=== PATIENT | male | born 1960 | race Two or more races ===

== ENCOUNTER 2024-08-29 22:02 | Inpatient (IN) | payer MEDICARE, OTHER ==
[~2024-08-29] VITALS: Ht 170.2 cm; Wt 54.5 kg
[2024-08-29 22:41] LABS: Basophils # (auto) 0 10 ^3/uL (0-0.2); Basophils % (auto) 0.3 % (0.0-2.0); Eosinophils # (auto) 0 10 ^3/uL (0-0.8); Eosinophils % (auto) 0.6 % (0.0-7.0); Hematocrit 46.7 % (41.0-53.0); Hemoglobin 15.7 g/dL (13.5-17.5); Lymphocytes # (auto) 1.2 10 ^3/uL (0.4-5.4); Mean Corpuscular Hemoglobin 30.4 pg (28.0-32.0); Mean Corpuscular Hgb Conc. 33.7 g/dL (32.0-36.0); Mean Corpuscular Volume 90.4 fL (80.0-100.0); Monocytes # (auto) 0.3 10 ^3/uL (0-1.3); Monocytes % (auto) 4.6 % (0.0-12.0); Neutrophils # (auto) 5.4 10 ^3/uL (1.6-8.6); Neutrophils % (auto) 77.5 % (37.0-80.0); Platelet Count (auto) 192 10^3/uL (140-450); Red Blood Cells 5.17 10^6/uL (4.5-5.90); Red Cell Distribution Width 13.6 % (11.8-14.3)
[2024-08-29 22:51] LABS: Chloride 106 mmol/L (98-107); Potassium 4.2 mmol/L (3.5-5.1); Sodium 141 mmol/L (136-145)
[2024-08-29 22:52] LABS: Anion Gap 6 (5-15); Calcium 10.2 mg/dL (8.7-10.4); Carbon Dioxide 29 mmol/L (20-31)
[2024-08-29 22:57] LABS: BUN/Creatinine Ratio 14.6 (10.0-20.0); Blood Urea Nitrogen 22 mg/dL (9-23)
[2024-08-29 23:11] LABS: Glucose 113 mg/dL (74-106)
--- NOTE | 2024-08-30 01:42 | ED.PDOC ---
HPI Comments This patient is a pleasant but lean 64-year-old male who arrives to the ED today via EMS for complaints of chest pain that began this morning has continued throughout the day. Patient does have a history of two prior MIs. Patient describes the pain in his Melissa, almost like an acid reflux type pain. Patient states he has had similar pain events prior to his MIs. Patient denies any fever nausea or vomiting. Patient was bradycardic at arrival. Patient declined the need for any medication while at the facility. Chief Complaint: Chest Pain Time Seen by MD: 22:07 Reviewed Notes: Nurses Notes Information Source: Patient, Friend Mode of Arrival: EMS Severity: Moderate Timing: Hours Duration: Since onset Prehospital treatment: 12 Lead EKG Location: Substernal Radiation: No Radiation Quality: Burning Onset: At Rest PE Risk Factors: None History of: [place] Associated Signs and Symptoms: Heartburn Past Medical History PAST MEDICAL HISTORY: [place] Surgical History: Denies all surgeries Family History Family History: Reviewed,noncontributory to illness, No family hx of Cancer, No family hx of DM, No family hx of Heart gita, No family hx of HTN, No family hx ofKidney gita, No family hx of Liver gita, No family hx of Lung gita, No family hx of Stroke Social History Smoker: Non-Smoker Alcohol: Denies ETOH Use Drugs: Denies Drug Use Lives In: Home Constitutional: denies: chills, diaphoresis, fatigue, fever, malaise, sweats, weakness, others EENTM: denies: blurred vision, double vision, ear bleeding, ear discharge, ear drainage, ear pain, ear ringing, eye pain, eye redness, hearing loss, mouth pain, mouth swelling, nasal discharge, nose bleeding, nose congestion, nose pain, photophobia, tearing, throat pain, throat swelling, voice changes, others Respiratory: denies: cough, hemoptysis, orthopnea, SOB at rest, shortness of breath, SOB with excertion, stridor, wheezing, others Cardiovascular: reports: chest pain; denies: dizzy spells, diaphoresis, Dyspnea on exertion, edema, irregular heart beat, left arm pain, lightheadedness, palpitations, PND, syncope, others Gastrointestinal: denies: abdomen distended, abdominal pain, blood streaked bowels, constipated, diarrhea, dysphagia, difficulty swallowing, hematemesis, melena, nausea, poor appetite, poor fluid intake, rectal bleeding, rectal pain, vomiting, others Genitourinary: denies: burning, dysuria, flank pain, frequency, hematuria, incontinence, penile discharge, penile sore, pain, testicle pain, testicle swelling, urgency, others Neurological: denies: dizziness, fainting, headache, left sided numbness, left sided weakness, numbness, paresthesia, pre-existing deficit, right sided numbness, right sided weakness, seizure, speech problems, tingling, tremors, weakness, others Musculoskeletal: denies: back pain, gout, joint pain, joint swelling, muscle pain, muscle stiffness, neck pain, others Integumetry: denies: bruises, change in color, change in hair/nails, dryness, laceration, lesions, lumps, rash, wounds, others Allergic/Immunocompromised: denies: Difficulty Healing, Frequent Infections, Hives, Itching, others Hematologic/Lymphatic: denies: anemia, blood clots, easy bleeding, easy bruising, swollen glands, others Endocrine: denies: excessive hunger, excessive sweating, excessive thirst, excessive urination, flushing, intolerance to cold, intolerance to heat, unexplained weight gain, unexplained weight loss, others Psychiatric: denies: anxiety, bipolar disorder, depression, hopeless, panic disorder, schizophrenia, sleepless, suicidal, others Physical Exam General Appearance: Moderate Distress (Moderate distress due to anxiety and burning chest pain.), Normal HEENT: Normal ENT Inspection, Pharynx Normal, TMs Normal Neck: Full Range of Motion, Non-Tender, Normal, Normal Inspection Respiratory: Chest Non-Tender, Lungs Clear, No Accessory Muscle Use, No Respiratory Distress, Normal Breath Sounds Cardiovascular: Bradycardia, No Edema, No JVD, No Murmur, No Gallop, Normal Peripheral Pulses Breast Exam: Deferred Gastrointestinal: No Organomegaly, Non Tender, No Pulsatile Mass, Normal Bowel Sounds, Soft Genitalia: Deferred Pelvic: Deferred Rectal: Deferred Extremities: No calf tenderness, Normal capillary refill, Normal inspection, Normal range of motion, Non-tender, No pedal edema Neurologic: Alert, civil service clerk II-XII nml as Tested, No Motor Deficits, Normal Affect, Normal Mood, No Sensory Deficits Cerebellar Function: Normal Reflexes: Normal Skin: Dry, Normal Color, Warm Lymphatic: No Adenopathy Was a procedure done? Was a procedure done?: No CP Differential Dx Differential Diagnosis: A-fib, Angina, Anxiety / Panic Attack, Atrial Dysrhythmia, AV Block 1st Degree, [place], Other (Acute coronary syndrome) X-Ray, Labs, Meds, VS Vital Signs Date Time Temp Pulse Resp B/P (MAP) Pulse Ox O2 Delivery O2 Flow Rate FiO2 08/29/24 23:12 47 08/29/24 22:28 98.8 65 15 127/59 (81) 99 08/29/24 22:16 55 Lab Test 08/29/24 23:20 08/29/24 22:28 Range/Units Troponin I High Sensitivity 4 4 </=54 ng/L White Blood Count 7.0 4.4-10.8 10^3/uL Red Blood Count 5.17 4.5-5.90 10^6/uL Hemoglobin 15.7 13.5-17.5 g/dL Hematocrit 46.7 41.0-53.0 % Mean Corpuscular Volume 90.4 80.0-100.0 fL Mean Corpuscular Hemoglobin 30.4 28.0-32.0 pg Mean Corpuscular Hemoglobin Concent 33.7 32.0-36.0 g/dL Red Cell Distribution Width 13.6 11.8-14.3 % Platelet Count 192 140-450 10^3/uL Mean Platelet Volume 9.0 6.9-10.8 fL Neutrophils (%) (Auto) 77.5 37.0-80.0 % Lymphocytes (%) (Auto) 17.0 10.0-50.0 % Monocytes (%) (Auto) 4.6 0.0-12.0 % Eosinophils (%) (Auto) 0.6 0.0-7.0 % Basophils (%) (Auto) 0.3 0.0-2.0 % Neutrophils # (Auto) 5.4 1.6-8.6 10 ^3/uL Lymphocytes # (Auto) 1.2 0.4-5.4 10 ^3/uL Monocytes # (Auto) 0.3 0-1.3 10 ^3/uL Eosinophils # (Auto) 0 0-0.8 10 ^3/uL Basophils # (Auto) 0 0-0.2 10 ^3/uL Nucleated Red Blood Cells 0.0 % Sodium Level 141 136-145 mmol/L Potassium Level 4.2 3.5-5.1 mmol/L Chloride Level 106 98-107 mmol/L Carbon Dioxide Level 29 20-31 mmol/L Anion Gap 6 5-15 Blood Urea Nitrogen 22 9-23 mg/dL Creatinine 1.51 H 0.700-1.30 mg/dL Glomerular Filtration Rate Calc 51 >90 mL/min BUN/Creatinine Ratio 14.6 10.0-20.0 Serum Glucose 113 H 74-106 mg/dL Lactic Acid Level 1.0 0.4-2.0 mmol/L Calcium Level 10.2 8.7-10.4 mg/dL B-Type Natriuretic Peptide 10.23 0-100 pg/mL X-Ray, Labs, Meds, VS Comment All studies performed the ED were reviewed by me personally. Laboratories were unremarkable for any acute systemic process and troponins were unremarkable. Chest x-ray was unremarkable for any consolidation or intrapulmonary concerns. EKG revealed a sinus rhythm with a borderline short CT interval and a history of anteroseptal infarct. Rate was 53 CT interval was 118 and QT interval was 460. Patient tended to trend in bradycardic range throughout his stay. Patient will be admitted for an acute coronary syndrome and rule out of sick sinus syndrome. Time of 1ST Reevaluation: 01:40 Reevaluation 1ST: Unchanged Consultation: PCP, Cardiology Patient Education/Counseling: Diagnosis, Treatment Family Education/Counseling: Diagnosis, Treatment Departure 1 Departure Time of Disposition: 01:41 Impression: Primary Impression: Acute coronary syndrome Additional Impression: Sick sinus syndrome Disposition: ADMITTED INPATIENT Condition: Stable Discharged With: Self Critical Care Note Critical Care Time?: No Stability Stability form required: No Heart Score Heart Score: Heart Score Response (Comments) Value History Slightly Suspicious 0 EKG Repolarization Disturb 1 Age >65 2 Risk Factors 1 or 2 risk factors 1 Troponin Normal limit 0 Total 4 KEVIN LONGO PAC Aug 30, 2024 01:42
--- NOTE | 2024-08-30 02:09 | DVH ---
EXAM: XY CHEST PORTABLE CLINICAL HISTORY: Chest pain TECHNIQUE: Single view of the chest WID: COMPARISON: None FINDINGS: Lines and tubes: None Chest: The heart size and pulmonary vasculature is within normal limits. Calcified plaque projects over the aortic arch. No pleural effusion, pneumothorax, or consolidation. Hyperexpansion of the lungs. The osseous structures are grossly intact. IMPRESSION: 1. No acute cardiopulmonary abnormality. 2. Hyperexpansion of the lungs which can be seen in the setting of COPD/ emphysema.
[2024-08-30] MEDS ORDERED: HYDROcodone-ACET 5/325MG TAB PO PRN (03:15)
[2024-08-30] MEDS ORDERED: DOCUSATE SOD 100 MG CAP PO PRN (03:15)
[2024-08-30] MEDS ORDERED: MORPHINE SULFATE INJ 2 MG/ml SYRG IV PRN ×2 (03:15→03:45)
[2024-08-30] MEDS ORDERED: ACETAMINOPHEN 325 MG TAB PO PRN (03:15)
[2024-08-30] MEDS ORDERED: NITROGLYCERIN 0.4 MG SL TAB SL PRN (03:45)
--- NOTE | 2024-08-30 03:46 | DVHHP2 ---
History of Present Illness Reason for Visit: Chest pain History of Present Illness Patient is a 64-year-old male with past medical history of myocardial infarction who presented to [facility] ED with complaint of chest pain. Patient reports pain as constant, rating 5/10 numeric scale, acid reflux type pain, getting worse that prompted this visit. Patient was seen and evaluated in the ED, laboratory data shows WBC 7.0, platelets 192, sodium 141, potassium 4.2, BUN 22, creatinine 1.51, glucose 113, BNP 10.23, troponin 4, blood pressure 127/59, heart rate 53, temperature 98.8 F, O2 saturation 99% on room air. Chest x-ray revealing hyperexpansion of the lungs which can be seen in the setting of COPD/emphysema, no acute cardiopulmonary abnormality. Please see medication orders section in the computer. On my assessment, patient denied chest pain at this moment, no headache, no dizziness, no diaphoresis, no shortness of breath, no nausea, no vomiting, no fever, no chills. Patient was admitted for further evaluation and medical management. Past Medical History PA Past Surgical History Denies all surgeries Family History Reviewed, noncontributory to the management of this case. Past Social History The patient lives at home, denies smoking, alcohol or illicit drugs abuse. Review of Systems Constitutional: Yes: Weakness; No: Fever, Chills, Sweats, Malaise, Other Eyes: No: Pain, Vision change, Conjunctivae inflammation, Eyelid inflammation, Other, Redness ENT: No: Ear pain, Ear discharge, Nose pain, Nose discharge, Nose congestion, Mouth pain, Mouth swelling, Throat pain, Throat swelling, Other Respiratory: No: Cough, Dry, Shortness of breath, SOB with excertion, Wheezing, Hemoptysis, Pleuritic Pain, Sputum, Wheezing, Other Cardiovascular: Chest Pain; No: Palpitations, Orthopnea, Paroxysmal Noc. Dyspnea, Edema, Lt Headedness, Other Gastrointestinal: No: Nausea, Vomiting, Abdominal Pain, Diarrhea, Constipation, Melena, Hematochezia, Other Genitourinary: No Dysuria, No Frequency, No Incontinence, No Hematuria, No Retention, No Other Musculoskeletal: No: other, neck pain, shoulder pain, arm pain, back pain, hand pain, leg pain, foot pain Skin: No: Rash, Lesions, Jaundice, Bruising, Other Neurological: No: Weakness, Numbness, Incoordination, Change in speech, Confusion, Seizures, Other Allergies: Coded Allergies: NO KNOWN ALLERGIES (Unverified , 08/30/24) Medications Current Medications Medications Dose Ordered Sig/Rose [place] Route Start Time Stop Time Status Last Admin Dose Admin Sodium Chloride 10 ml Q8HR IV 08/30/24 06:00 UNV Acetaminophen/ Hydrocodone Bitart 1 tab Q4HP PRN PO 08/30/24 03:15 UNV Ondansetron HCl 4 mg Q4HP PRN IV 08/30/24 03:15 UNV Docusate Sodium 100 mg BIDPRN PRN PO 08/30/24 03:15 UNV Acetaminophen 650 mg Q6HP PRN PO 08/30/24 03:15 UNV Morphine Sulfate 2 mg Q4HPRN PRN IV 08/30/24 03:15 UNV Exam Vital Signs Vital Signs Date Time Temp Pulse Resp B/P (MAP) Pulse Ox O2 Delivery O2 Flow Rate FiO2 08/30/24 01:24 53 08/29/24 22:28 98.8 15 127/59 (81) 99 General Appearance: Alert, Oriented X3, Cooperative, No acute distress HEENT: Atraumatic, PERRLA, EOMI, Mucous membr. moist/pink Respiratory: Clear to auscultation, Normal air movement Cardiovascular: Regular rate, Normal S1, Normal S2, No murmurs Abdominal: Normal bowel sounds, Soft, No tenderness, No hepatospenomegaly, No masses Extremities: No clubbing, No cyanosis, No edema, Normal pulses, No tenderness/swelling Skin: No rashes, No breakdown, No significant lesion Neuro: Normal speech, Normal tone, Sensation intact, Cranial nerves 3-12 NL, Reflexes 2+, Other (Generalized weakness) Psych/Mental Status: Mental status NL, Mood NL Labs/Xrays Labs Test 08/29/24 23:20 08/29/24 22:28 Range/Units Troponin I High Sensitivity 4 </=54 ng/L White Blood Count 7.0 4.4-10.8 10^3/uL Red Blood Count 5.17 4.5-5.90 10^6/uL Hemoglobin 15.7 13.5-17.5 g/dL Hematocrit 46.7 41.0-53.0 % Mean Corpuscular Volume 90.4 80.0-100.0 fL Mean Corpuscular Hemoglobin 30.4 28.0-32.0 pg Mean Corpuscular Hemoglobin Concent 33.7 32.0-36.0 g/dL Red Cell Distribution Width 13.6 11.8-14.3 % Platelet Count 192 140-450 10^3/uL Mean Platelet Volume 9.0 6.9-10.8 fL Neutrophils (%) (Auto) 77.5 37.0-80.0 % Lymphocytes (%) (Auto) 17.0 10.0-50.0 % Monocytes (%) (Auto) 4.6 0.0-12.0 % Eosinophils (%) (Auto) 0.6 0.0-7.0 % Basophils (%) (Auto) 0.3 0.0-2.0 % Neutrophils # (Auto) 5.4 1.6-8.6 10 ^3/uL Lymphocytes # (Auto) 1.2 0.4-5.4 10 ^3/uL Monocytes # (Auto) 0.3 0-1.3 10 ^3/uL Eosinophils # (Auto) 0 0-0.8 10 ^3/uL Basophils # (Auto) 0 0-0.2 10 ^3/uL Nucleated Red Blood Cells 0.0 % Sodium Level 141 136-145 mmol/L Potassium Level 4.2 3.5-5.1 mmol/L Chloride Level 106 98-107 mmol/L Carbon Dioxide Level 29 20-31 mmol/L Anion Gap 6 5-15 Blood Urea Nitrogen 22 9-23 mg/dL Creatinine 1.51 H 0.700-1.30 mg/dL Glomerular Filtration Rate Calc 51 >90 mL/min BUN/Creatinine Ratio 14.6 10.0-20.0 Serum Glucose 113 H 74-106 mg/dL Lactic Acid Level 1.0 0.4-2.0 mmol/L Calcium Level 10.2 8.7-10.4 mg/dL B-Type Natriuretic Peptide 10.23 0-100 pg/mL PATIENT: JOSE QUIÑONEZ ACCT: [id number] UNIT: [id number] : 1960 LOC: ER ROOM / BED: / AGE / SEX: 64 / M ADM STATUS: REG ER SERVICE 10 ORDERING PHYSICIAN: KEVIN LONGO PAC PROCEDURE(s): CXRP - CHEST PORTABLE REASON: Chest pain ORDER NUMBER(s): [id number], ACCESSION NUMBER(s): [id number] EXAM: XY CHEST PORTABLE CLINICAL HISTORY: Chest pain TECHNIQUE: Single view of the chest WID: COMPARISON: None FINDINGS: Lines and tubes: None Chest: The heart size and pulmonary vasculature is within normal limits. Calcified dee que projects over the aortic arch. No pleural effusion, pneumothorax, or consolidation. Hyperexpansion of the lungs. The osseous structures are grossly intact. IMPRESSION: 1. No acute cardiopulmonary abnormality. 2. Hyperexpansion of the lungs which can be seen in the setting of COPD/emphysema. Assessment/Plan Assessment/Plan Acute coronary syndrome Sick sinus syndrome Generalized weakness Plan 1. Admit to telemetry unit 2. Breathing treatment 3. Pain control management 4. Management of fluids and electrolytes 5. Consultation for hospitalist 6. Diagnostic tests chest x-ray 7. DVT prophylaxis-on SCDs 8. Repeat labs CBC, CMP in a.m. 9. Continue with current medical management 10. Treatment plan discussed with patient and RN. Patient verbalized understanding. Plan discussed with: Patient, Other (RN) My Orders Orders - REID SMITH DNP Procedure Category Date Status Time Complete Blood Count LAB 08/30/24 Logged 04:00 Comprehensive LAB 08/30/24 Logged Metabolic Panel 04:00 Allergies STACY 08/30/24 In Process 03:07 Code Status CODE 08/30/24 Transmitted 03:07 Sodium Chloride Lock PHA 08/30/24 Logged (Saline Lock Ns) 06:00 Oxygen Per Hour RT 08/30/24 Transmitted 03:07 Hydrocodone-Acet PHA 08/30/24 Logged 5/325mg Tab ([place] 03:15 Ondansetron Hcl PHA 08/30/24 Logged (Zofran) 03:15 Docusate Sodium PHA 08/30/24 Logged Capsule ([place] 03:15 Complete Blood Count LAB 08/31/24 Verified 04:00 Comprehensive LAB 08/31/24 Verified Metabolic Panel 04:00 Cardiac DIET 08/30/24 Transmitted Diet-2gna,Lofat,Lochol Breakfast Condition: Serious STACY 08/30/24 In Process 03:07 Acetaminophen Tablet PHA 08/30/24 Logged (Tylenol Tablet) 03:15 Bedrest With Bathroom STACY 08/30/24 In Process Privileg 03:07 Morphine Sulfate [facility] 08/30/24 Logged Injection 03:15 Sequential [facility] 08/30/24 In Process Compression Device Admit ADMIT 08/30/24 Transmitted 03:45 Nitroglycerin [facility] 08/30/24 Transmitted Sublingual ([place]stat 03:45 Morphine Sulfate [facility] 08/30/24 Transmitted Injection 03:45 Notify Md Of Changes [facility] 08/30/24 Transmitted From Base 03:45 Certified Respiratory Therapist For [facility] 08/30/24 Transmitted 24 Hours 03:45 Emergency Dysrhythmia [facility] 08/30/24 Transmitted Protocol 03:45 Rhythm Strips Once [facility] 08/30/24 Transmitted Every Shift 03:45 Oxygen By Nasal 08/30/24 Transmitted Cannula 03:45 Problem List: (1) Acute coronary syndrome (2) Sick sinus syndrome (3) Generalized weakness Date of Service: Aug 30, 2024 Billing Provider: REID SMITH DNP Common Visit Codes: [id number] INP/OBS CARE (HIGH) REID SMITH DNP Aug 30, 2024 03:46
[2024-08-30 04:30] VITALS: PULSE 59; RESP 18; O2SAT 98
[2024-08-30] MEDS: SOD CHL 0.45% 1,000 ML IV SCH (06:15)
[2024-08-30] MEDS: SODIUM CHLOR 0.9% PF (SALINE LOCK) 10ML VIAL/SYR IV SCH (06:30)
[2024-08-30 07:20] VITALS: PULSE 65; RESP 14; O2SAT 100
[2024-08-30 08:43] LABS: Basophils # (auto) 0 10 ^3/uL (0-0.2); Basophils % (auto) 0.3 % (0.0-2.0); Eosinophils # (auto) 0.1 10 ^3/uL (0-0.8); Eosinophils % (auto) 1.5 % (0.0-7.0); Hematocrit 47.8 % (41.0-53.0); Hemoglobin 16.1 g/dL (13.5-17.5); Lymphocytes # (auto) 1.8 10 ^3/uL (0.4-5.4); Lymphocytes % (auto) 23.2 % (10.0-50.0); Mean Corpuscular Hemoglobin 30.5 pg (28.0-32.0); Mean Corpuscular Hgb Conc. 33.7 g/dL (32.0-36.0); Mean Corpuscular Volume 90.6 fL (80.0-100.0); Monocytes # (auto) 0.5 10 ^3/uL (0-1.3); Monocytes % (auto) 6.6 % (0.0-12.0); Neutrophils # (auto) 5.2 10 ^3/uL (1.6-8.6); Neutrophils % (auto) 68.4 % (37.0-80.0); Nucleated Red Blood Cells % 0.2 %; Platelet Count (auto) 210 10^3/uL (140-450); Red Blood Cells 5.27 10^6/uL (4.5-5.90); Red Cell Distribution Width 13.6 % (11.8-14.3); White Blood Cell 7.5 10^3/uL (4.4-10.8)
[2024-08-30 11:02] LABS: Alkaline Phosphatase 47 U/L (46-116); Anion Gap 5 (5-15); BUN/Creatinine Ratio 13.8 (10.0-20.0); Blood Urea Nitrogen 18 mg/dL (9-23); Calcium 10.2 mg/dL (8.7-10.4); Carbon Dioxide 30 mmol/L (20-31); Chloride 104 mmol/L (98-107); Potassium 4.4 mmol/L (3.5-5.1); Sodium 139 mmol/L (136-145)
[2024-08-30 11:03] LABS: Albumin 4.1 g/dL (3.2-4.8); Bilirubin, Total 0.7 mg/dL (0.2-1.0); Total Protein 6.7 g/dL (5.7-8.2)
[2024-08-30 11:10] LABS: Alanine Aminotransferase < 9 U/L (7-40); Aspartate Aminotransferase < 8 U/L (13-40); Glucose 108 mg/dL (74-106)
--- NOTE | 2024-08-30 13:01 | DVHPN2 ---
Reviewed: Care Plan, H&P, Labs, Medications, Previous Orders, Radiology Changes from previous H/P or p: No Changes Eyes: No Pain, No Vision change, No Conjunctivae inflammation, No Eyelid inflammation, No Other, No Redness ENT: No Ear pain, No Ear discharge, No Nose pain, No Nose discharge, No Nose congestion, No Mouth pain, No Mouth swelling, No Throat pain, No Throat swelling, No Other Cardiovascular: Chest Pain; No Palpitations, No Orthopnea, No Paroxysmal Noc. Dyspnea, No Edema, No Lt Headedness, No Other Respiratory: No Cough, No Dry, No Shortness of breath, No SOB with excertion, No Wheezing, No Hemoptysis, No Pleuritic Pain, No Sputum, No Other Gastrointestinal: No Nausea, No Vomiting, No Abdominal Pain, No Diarrhea, No Constipation, No Melena, No Hematochezia, No Other Genitourinary: No Dysuria, No Frequency, No Incontinence, No Hematuria, No Retention, No Other Musculoskeletal: No other, No neck pain, No shoulder pain, No arm pain, No back pain, No hand pain, No leg pain, No foot pain Skin: No Rash, No Lesions, No Jaundice, No Bruising, No Other Objective Vitals Vital Signs Date Time Temp Pulse Resp B/P (MAP) Pulse Ox O2 Delivery O2 Flow Rate FiO2 08/30/24 08:29 69 08/30/24 07:20 14 104/61 (75) 100 08/30/24 07:20 Room Air* 0 21 08/30/24 04:30 97.8 97.8 Medications Current Medications Medications Dose Ordered Sig/Rose Mary Route Start Time Stop Time Status Last Admin Dose Admin Sodium Chloride 10 ml Q8HR IV 08/30/24 06:00 Acetaminophen/ Hydrocodone Bitart 1 tab Q4HP PRN PO 08/30/24 03:15 Ondansetron HCl 4 mg Q4HP PRN IV 08/30/24 03:15 Docusate Sodium 100 mg BIDPRN PRN PO 08/30/24 03:15 Acetaminophen 650 mg Q6HP PRN PO 08/30/24 03:15 Morphine Sulfate 2 mg Q4HPRN PRN IV 08/30/24 03:15 Nitroglycerin 0.4 mg Q5MINP PRN SL 08/30/24 03:45 Morphine Sulfate 2 mg Q30M PRN IV 08/30/24 03:45 Sodium Chloride 1,000 ml @ 75 mls/hr [id number] IV 08/30/24 06:15 Laboratory Results Laboratory Tests 08/30/24 08:17 08/30/24 09:43 Chemistry Test 08/29/24 22:28 08/30/24 09:43 Calcium Level 10.2 mg/dL (8.7-10.4) 10.2 mg/dL (8.7-10.4) Albumin 4.1 g/dL (3.2-4.8) Total Protein 6.7 g/dL (5.7-8.2) Cardiac Markers Test 08/29/24 22:28 B-Type Natriuretic Peptide 10.23 pg/mL (0-100) LFT Test 08/30/24 09:43 Alanine Aminotransferase (ALT) < 9 U/L (7-40) Alkaline Phosphatase 47 U/L (46-116) Aspartate Amino Transferase (AST) < 8 U/L (13-40) L Total Bilirubin 0.7 mg/dL (0.2-1.0) Labs and/or images reviewed: Labs reviewed by me, Image(s) reviewed by me Assessment/Plan Assessment/Plan Chest pain troponin negative x3, cardiology consult for Dr Patel History of [place] Time spent 35 minutes Plan discussed with: Patient My Orders Orders - EASTON SU MD Procedure Category Date Status Time * Cardiology Consult CONS 08/30/24 Verified 12:58 Date of Service: Aug 30, 2024 Billing Provider: EASTON SU MD Common Visit Codes: [id number] INP/OBS CARE(HIGH) EASTON SU MD Aug 30, 2024 13:01
[2024-08-30 20:00] VITALS: TEMP 97.9
[2024-08-30] MEDS: ONDANSETRON HCL 4 MG/2 ML VIAL IV PRN (22:12)
--- NOTE | 2024-08-31 05:49 | ECG ---
[facility] Test Date: 2024-08-29 Test Time: 23:12:11 Pat Name: JOSE QUIÑONEZ Department: ED Room: [address] [place] [address] Gender: M Medical Equipment Repair Technician: ALEJANDRO : 1960 Requested By: KEVIN LONGO Order Number: [id number] Reading MD: Measurements Intervals [place] Rate: 47 P: 70 PA: 145 QRS: 79 QRSD: 95 T: 72 QT: 468 QTc: 414 Interpretive Statements Sinus bradycardia Borderline low voltage, extremity leads Please click the below link to view image of tracing.
[2024-08-31 06:00] LABS: Basophils # (auto) 0 10 ^3/uL (0-0.2); Basophils % (auto) 0.2 % (0.0-2.0); Eosinophils # (auto) 0.2 10 ^3/uL (0-0.8); Eosinophils % (auto) 2.8 % (0.0-7.0); Hematocrit 46.8 % (41.0-53.0); Lymphocytes # (auto) 2.8 10 ^3/uL (0.4-5.4); Lymphocytes % (auto) 38.4 % (10.0-50.0); Mean Corpuscular Hemoglobin 30.7 pg (28.0-32.0); Mean Corpuscular Hgb Conc. 34.2 g/dL (32.0-36.0); Mean Corpuscular Volume 89.7 fL (80.0-100.0); Monocytes # (auto) 0.5 10 ^3/uL (0-1.3); Monocytes % (auto) 7.1 % (0.0-12.0); Neutrophils # (auto) 3.7 10 ^3/uL (1.6-8.6); Neutrophils % (auto) 51.5 % (37.0-80.0); Platelet Count (auto) 193 10^3/uL (140-450); Red Blood Cells 5.22 10^6/uL (4.5-5.90); Red Cell Distribution Width 13.7 % (11.8-14.3); White Blood Cell 7.2 10^3/uL (4.4-10.8)
[2024-08-31 06:03] LABS: Alkaline Phosphatase 47 U/L (46-116); Anion Gap 6 (5-15); Calcium 9.9 mg/dL (8.7-10.4); Carbon Dioxide 27 mmol/L (20-31); Chloride 106 mmol/L (98-107); Glucose 80 mg/dL (74-106); Potassium 4.3 mmol/L (3.5-5.1); Sodium 139 mmol/L (136-145)
[2024-08-31 06:04] LABS: Albumin 4.1 g/dL (3.2-4.8); BUN/Creatinine Ratio 15.2 (10.0-20.0); Blood Urea Nitrogen 22 mg/dL (9-23)
[2024-08-31 06:06] LABS: Bilirubin, Total 0.8 mg/dL (0.2-1.0); Total Protein 6.4 g/dL (5.7-8.2)
[2024-08-31 06:31] LABS: Alanine Aminotransferase < 9 U/L (7-40); Aspartate Aminotransferase < 8 U/L (13-40)
[2024-08-31 07:25] VITALS: PULSE 50; RESP 10; O2SAT 98
[2024-08-31 09:46] VITALS: BP 114/68; PULSE 70; RESP 16; O2SAT 97
--- NOTE | 2024-08-31 12:09 | DVHPN2 ---
Reviewed: Care Plan, H&P, Labs, Medications, Previous Orders, Radiology Changes from previous H/P or p: No Changes Eyes: No Pain, No Vision change, No Conjunctivae inflammation, No Eyelid inflammation, No Other, No Redness ENT: No Ear pain, No Ear discharge, No Nose pain, No Nose discharge, No Nose congestion, No Mouth pain, No Mouth swelling, No Throat pain, No Throat swelling, No Other Cardiovascular: Chest Pain; No Palpitations, No Orthopnea, No Paroxysmal Noc. Dyspnea, No Edema, No Lt Headedness, No Other Respiratory: No Cough, No Dry, No Shortness of breath, No SOB with excertion, No Wheezing, No Hemoptysis, No Pleuritic Pain, No Sputum, No Other Gastrointestinal: No Nausea, No Vomiting, No Abdominal Pain, No Diarrhea, No Constipation, No Melena, No Hematochezia, No Other Genitourinary: No Dysuria, No Frequency, No Incontinence, No Hematuria, No Retention, No Other Musculoskeletal: No other, No neck pain, No shoulder pain, No arm pain, No back pain, No hand pain, No leg pain, No foot pain Skin: No Rash, No Lesions, No Jaundice, No Bruising, No Other Objective Vitals Vital Signs Date Time Temp Pulse Resp B/P (MAP) Pulse Ox O2 Delivery O2 Flow Rate FiO2 08/31/24 09:46 70 16 114/68 (83) 97 08/31/24 07:25 Room Air* 0 21 08/30/24 20:00 97.9 97.9 Intake/Output Intake and Output 08/31/24 07:00 Intake Total 1012.5 ml Balance 1012.5 ml Intake IV Total 1012.5 ml Laboratory Results Laboratory Tests 08/31/24 05:17 Chemistry Test 08/31/24 05:17 Albumin 4.1 g/dL (3.2-4.8) Calcium Level 9.9 mg/dL (8.7-10.4) Total Protein 6.4 g/dL (5.7-8.2) LFT Test 08/31/24 05:17 Alanine Aminotransferase (ALT) < 9 U/L (7-40) Alkaline Phosphatase 47 U/L (46-116) Aspartate Amino Transferase (AST) < 8 U/L (13-40) L Total Bilirubin 0.8 mg/dL (0.2-1.0) Labs and/or images reviewed: Labs reviewed by me, Image(s) reviewed by me Assessment/Plan Assessment/Plan Chest pain troponin negative x3, cardiology consult for Dr Patel History of [place] 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
== END 2024-08-31 11:01 | disposition left against medical advice (07) | DRG 201 ==
LOC: EDBD 22:02 → ER 22:02 → TELE 08-30 03:45
PROVIDERS: ADMIT Nurse Practitioner Family; ATTEND Nurse Practitioner Family
DX: I49.5 Sick sinus syndrome (principal); I24.9 Acute ischemic heart disease, unspecified; Z53.29 Procedure and treatment not carried out because of patient's decision for other reasons; K21.9 Gastro-esophageal reflux disease without esophagitis; I25.2 Old myocardial infarction; Z79.899 Other long term (current) drug therapy
CPT/HCPCS: 36415; 71045; 80048; 80053; 83605; 83880; 84484; 85025; G0378; J2405